=== PATIENT | female | born 1950 | race Caucasian/White ===

== ENCOUNTER 2018-07-30 15:05 | Emergency (ER) | payer BC, MEDICARE ==
[~2018-07-30] VITALS: Ht 160 cm; Wt 72.6 kg
[2018-07-30 15:30] VITALS: BP 135/76
--- NOTE | 2018-07-30 15:42 | PHYS DOC ---
Past History Past Surgical History: Hysterectomy, Knee Replacement Smoking: Non-smoker Alcohol Use: Occasionally Drug Use: None Adult General Chief Complaint Chief Complaint: NEURO SYMPTOMS/DEFICITS HPI HPI Patient is a 67-year-old female who presents with "not thinking clearly." Patient fell 6 days ago striking her head after a syncopal episode. She was evaluated in the hospital in [place] where she normally lives and was cleared at that time. Evaluation included a CT scan of her head. She traveled to [place] yesterday via airplane to visit family. Reports some dyspnea on exertion when climbing stairs. Denies any specific chest pain but feels like she can't take a deep breath. Denies any new swelling in her legs feet or ankles. Denies any change in exercise tolerance walking on a flat surface. No cough, no fever. Reports that her head "just doesn't feel right" and she cannot be more specific in the description. Nothing seems to make this better or worse. She takes an aspirin a day, no other blood thinners. She has taken no pain medication outside of her daily aspirin. No weakness in the arms or legs. No chest pain or palpitations.[] Review of Systems Review of Systems Constitutional: Denies fever or chills [] Eyes: Denies change in visual acuity, redness, or eye pain [] HENT: Denies nasal congestion or sore throat [] Respiratory: Denies cough or orthopnea[] Cardiovascular: No chest pain or palpitations[] GI: Denies abdominal pain, nausea, vomiting, bloody stools or diarrhea [] : Denies dysuria or hematuria [] Musculoskeletal: Denies back pain or joint pain [] Integument: Denies rash or skin lesions [] Neurologic: Denies focal weakness or sensory changes, reports that the headache from the head injury is mild, not worst headache of life [] Endocrine: Denies polyuria or polydipsia [] All other systems were reviewed and found to be within normal limits, except as documented in this note. Family History Family History Father with heart issues in his 70s Physical Exam Physical Exam Constitutional: Well developed, well nourished, no acute distress, non-toxic appearance. [] HENT: Normocephalic, atraumatic, bilateral external ears normal, oropharynx moist, no oral exudates, nose normal. [] Eyes: PERRLA, EOMI, conjunctiva normal, no discharge. [] Neck: Normal range of motion, no tenderness, supple, no stridor. [] Cardiovascular:Heart rate regular rhythm, no murmur [] Lungs & Thorax: Bilateral breath sounds clear to auscultation [] Abdomen: Bowel sounds normal, soft, no tenderness, no masses, no pulsatile masses. [] Skin: Warm, dry, no erythema, no rash. [] Back: No tenderness, no CVA tenderness. [] Extremities: No tenderness, no cyanosis, no clubbing, ROM intact, 1-2+ pretibial edema, patient reports that this is normal for her, it is symmetric.. [] Neurologic: Alert and oriented X 3, normal motor function, normal sensory function, no focal deficits noted. [] Psychologic: Affect normal, judgement normal, mood normal. [] EKG EKG EKG shows a sinus rhythm at 69 bpm, left axis at -1, QTC of 447 ms, no ST elevations. No old EKG available for comparison.[] Radiology/Procedures Radiology/Procedures CT of the chest with contrast, 07/30/2018: HISTORY: Chest pain, dizziness, recent travel Multidetector CT imaging was performed following an IV bolus injection of iodinated contrast material. Multiplanar reconstructions were produced including coronal and sagittal MIP images. The central pulmonary arteries are well opacified and no filling defects are seen to suggest pulmonary emboli. There is mild calcific plaquing of the thoracic aorta without evidence of aneurysm. No mediastinal or hilar adenopathy is seen. The right lobe of the thyroid gland is enlarged and demonstrates decreased density relative to the left lobe suggesting a mass. There are discoid shaped opacities in the right upper lobe and lingula. This process in the medial aspect of the right upper lobe demonstrates small underlying lucencies suggesting bronchiectasis. There are small nodular opacities in both lungs, most numerous in the right upper lobe. Many of these demonstrate a tree-in-bud type configuration suggesting inflammation. Several of these appear to be cavitary including a 1.6 cm nodule in the lateral aspect of the right upper lobe as seen on image 55 of series #4. There is no evidence of pleural fluid. A gallstone is present in the gallbladder. No pericholecystic edema is seen. A couple of small low density lesions in the liver are probably cysts. IMPRESSION: 1. No CT evidence of central pulmonary emboli. 2. Streaky and nodular bilateral pulmonary opacities, worse on the right, with probable cavitation of the largest nodule. Diagnostic considerations include an infectious process including septic emboli or metastatic disease. There may be an underlying component of chronic lung disease with bronchiectasis. 3. Cholelithiasis. 4. Small right thyroid nodule. TECHNIQUE: CT head without IV contrast COMPARISON:None FINDINGS: No pathologic extra-axial or intra-axial fluid collection. There is a 3 mm high attenuating focus in the left frontal lobe and high convexity (series 2 image 27). The ventricles and basal cisterns are within normal limits. No focal loss of cunha-white differentiation. Orbits are within normal limits. No large scalp hematoma. No acute calvarial fracture. The visualized paranasal sinuses and mastoid air cells are clear. IMPRESSION: Small 3 mm focus of high attenuation in the left anterior frontal lobe may be artifactual or may represent a small hemorrhagic contusion. Critical findings were identified on 07/30/2018 4:24 PM, read back and verified with Dr. Mart on 07/30/2018 4:[address] Yovanny Durbin DO.[] Course & Med Decision Making Course & Med Decision Making Pertinent Labs and Imaging studies reviewed. (See chart for details) ED course: Patient arrived, was placed in bed, and tolerated exam well. Her oxygen saturation vital signs remained stable during her emergency department stay, 98% saturation, 86 heart rate, 128/78 blood pressure at the time of this dictation. After the return of the lab and imaging findings, these were discussed with the patient who voiced understanding. All questions were answered. Medical decision making: There is no evidence of intracranial mass nor significant bleed, believe this CT finding of her head to be volume averaging. There is no evidence of a pulmonary embolism however the CT findings are worrisome and patient will need close follow-up with her primary care physician in [facility]. A disc is being made for her. We'll cover for possible infectious etiology. No evidence of an acute coronary syndrome, nor CHF., No anemia, no significant electrolyte abnormality. There is no evidence of urinary tract infection. Believe patient to be stable for discharge with close follow-up.[] Dragon Disclaimer Dragon Disclaimer This electronic medical record was generated, in whole or in part, using a voice recognition dictation system. Departure Departure: Impression: Primary Impression: Closed head injury Additional Impressions: Post concussive syndrome Abnormality of lung Disposition: 01 HOME, SELF-CARE Condition: IMPROVED Referrals: [facility] (PCP) Patient Instructions: Post-Concussion Syndrome Additional Instructions: Follow-up with your regular doctor as soon as you get home. Your CT scan of the chest today showed: 1. No CT evidence of central pulmonary emboli. 2. Streaky and nodular bilateral pulmonary opacities, worse on the right, with probable cavitation of the largest nodule. Diagnostic considerations include an infectious process including septic emboli or metastatic disease. There may be an underlying component of chronic lung disease with bronchiectasis. Return to the ER if worsening difficulty breathing or any other concerns. Scripts Albuterol Sulfate (PROVENTIL HFA INHALER) 6.7 Gm Hfa.aer.ad 1 PUFF INH PRN Q4HRS PRN for FOR ASTHMA, #1 INHALER 0 Refills Prov: MELANIE MART DO 07/30/18 Levofloxacin (LEVAQUIN) 750 Mg Tablet 1 TAB PO DAILY for lung findings, #10 TAB Prov: MELANIE MART DO 07/30/18 Problem Qualifiers Primary Impression: Closed head injury Encounter type: initial encounter Qualified Codes: S09.90XA - Unspecified injury of head, initial encounter MELANIE MART DO Jul 30, 2018 15:41
[2018-07-30 15:53] LABS: BASO % 1 % (0-3); EOS # 0.1 x10^3/uL (0.0-0.7); EOS % 3 % (0-3); HEMATOCRIT 43.1 % (36.0-47.0); HEMOGLOBIN 14.7 g/dL (12.0-15.5); LYMPH # 1.1 x10^3/uL (1.0-4.8); LYMPH % 22 % (24-48); MEAN CORPUSCULAR HEMOGLOBIN 33 pg (25-35); MEAN CORPUSCULAR HGB CONC 34 g/dL (31-37); MEAN CORPUSCULAR VOLUME 96 fL (79-100); MONO # 0.7 x10^3/uL (0.0-1.1); MONO % 13 % (0-9); NEUT # 3.2 x10^3uL (1.8-7.7); NEUT % 62 % (31-73); PLATELET COUNT 224 x10^3/uL (140-400); RED BLOOD COUNT 4.47 x10^6/uL (3.50-5.40); RED CELL DISTRIBUTION WIDTH 13.2 % (11.5-14.5); WHITE BLOOD COUNT 5.2 x10^3/uL (4.0-11.0)
[2018-07-30 16:13] LABS: ALBUMIN/GLOBULIN RATIO 1.1 (1.0-1.7); CREATININE 1.2 mg/dL (0.6-1.0); GFR 45.1; MAGNESIUM 2.2 mg/dL (1.8-2.4); POTASSIUM 4.1 mmol/L (3.5-5.1); TOTAL BILIRUBIN 0.3 mg/dL (0.2-1.0); TOTAL PROTEIN 7.7 g/dL (6.4-8.2)
[2018-07-30] MEDS ORDERED: IOHEXOL 350 MG/ML 100 ML VIAL. IV ONE (16:20)
--- NOTE | 2018-07-30 16:33 | RAD ---
PQRS Compliance statement: One or more of the following individualized dose reduction techniques were utilized for this examination: 1. Automated exposure control. 2. Adjustment of the mA and/or kV according to patient size. 3. Use of iterative reconstruction technique. Indication:PATIENT IS EXPERIENCING SYNCOPE, SOB, ALTERED MENTAL STATUS, AND FELL 6 DAYS AGO. TECHNIQUE: CT head without IV contrast COMPARISON:None FINDINGS: No pathologic extra-axial or intra-axial fluid collection. There is a 3 mm high attenuating focus in the left frontal lobe and high convexity (series 2 image 27). The ventricles and basal cisterns are within normal limits. No focal loss of cunha-white differentiation. Orbits are within normal limits. No large scalp hematoma. No acute calvarial fracture. The visualized paranasal sinuses and mastoid air cells are clear. IMPRESSION: Small 3 mm focus of high attenuation in the left anterior frontal lobe may be artifactual or may represent a small hemorrhagic contusion. Critical findings were identified on 07/30/2018 4:24 PM, read back and verified with Dr. Griffiths on 07/30/2018 4:[address] Yovanny Durbin DO. Electronically signed by: Yovanny Durbin DO (07/30/2018 4:30 PM) [facility]
[2018-07-30 16:39] LABS: AMPHETAMINE/METHAMPHETAMINE NEG (NEG); BARBITURATES NEG (NEG); BENZODIAZEPINES NEG (NEG); CANNABINOIDS NEG (NEG); COCAINE NEG (NEG); METHADONE NEG (NEG); OPIATES NEG (NEG); PHENCYCLIDINE NEG (NEG)
[2018-07-30 16:56] LABS: BACTERIA,URINE 0 /HPF (0-FEW); BILIRUBIN,URINE NEG (NEG); CLARITY,URINE CLEAR; COLOR,URINE YELLOW; GLUCOSE,URINE NEG (NEG); NITRITE,URINE NEG (NEG); RBC,URINE 0 /HPF (0-2); SQUAMOUS EPITHELIAL CELL,UR OCC /LPF; UROBILINOGEN,URINE 0.2 mg/dL (0.2 mg/dL); WBC,URINE 0 /HPF (0-4)
--- NOTE | 2018-07-30 17:11 | RAD ---
CT of the chest with contrast, 07/30/2018: HISTORY: Chest pain, dizziness, recent travel Multidetector CT imaging was performed following an IV bolus injection of iodinated contrast material. Multiplanar reconstructions were produced including coronal and sagittal MIP images. The central pulmonary arteries are well opacified and no filling defects are seen to suggest pulmonary emboli. There is mild calcific plaquing of the thoracic aorta without evidence of aneurysm. No mediastinal or hilar adenopathy is seen. The right lobe of the thyroid gland is enlarged and demonstrates decreased density relative to the left lobe suggesting a mass. There are discoid shaped opacities in the right upper lobe and lingula. This process in the medial aspect of the right upper lobe demonstrates small underlying lucencies suggesting bronchiectasis. There are small nodular opacities in both lungs, most numerous in the right upper lobe. Many of these demonstrate a tree-in-bud type configuration suggesting inflammation. Several of these appear to be cavitary including a 1.6 cm nodule in the lateral aspect of the right upper lobe as seen on image 55 of series #4. There is no evidence of pleural fluid. A gallstone is present in the gallbladder. No pericholecystic edema is seen. A couple of small low density lesions in the liver are probably cysts. IMPRESSION: 1. No CT evidence of central pulmonary emboli. 2. Streaky and nodular bilateral pulmonary opacities, worse on the right, with probable cavitation of the largest nodule. Diagnostic considerations include an infectious process including septic emboli or metastatic disease. There may be an underlying component of chronic lung disease with bronchiectasis. 3. Cholelithiasis. 4. Small right thyroid nodule. PQRS Compliance Statement: One or more of the following individualized dose reduction techniques were utilized for this examination: 1. Automated exposure control 2. Adjustment of the mA and/or kV according to patient size 3. Use of iterative reconstruction technique Electronically signed by: Brandon Null MD (07/30/2018 5:08 PM) [facility]
[2018-07-30] MEDS ORDERED: ALBU2.5V8 INH (17:28)
[2018-07-30] MEDS ORDERED: LEVO750T31 PO (17:28)
--- NOTE | 2018-07-31 06:40 | EKG ---
[address] [address] Test Date: 2018-07-30 Test Time: 15:58:05 Pat Name: KEERTHI ARROYO Department: Room: Gender: F Fluid Dynamicist: : 1950 Requested By: MELANIE MART Order Number: [id number] Reading MD: Adan Mabry MD Measurements Intervals [place] Rate: 69 P: 68 AL: 162 QRS: -1 QRSD: 84 T: 61 QT: 416 QTc: 447 Interpretive Statements SINUS RHYTHM Electronically Signed On 07-31-2018 8:41:51 CDT by Adan Mabry MD
== END 2018-07-30 17:47 | disposition home or self-care (01) ==
LOC: ER 15:05
DX: S09.8XXA Other specified injuries of head, initial encounter (principal); F07.81 Postconcussional syndrome; J98.4 Other disorders of lung; W18.09XA Striking against other object with subsequent fall, initial encounter; Y93.89 Activity, other specified; Y92.89 Other specified places as the place of occurrence of the external cause; Y99.8 Other external cause status
CPT/HCPCS: 36415; 70450; 71275; 80053; 80307; 81001; 83735; 83880; 84484; 85025; 85610; 93005; 99284; Q9967